=== PATIENT | female | born 1965 | race Caucasian/White ===

== ENCOUNTER 2020-12-07 08:59 | Inpatient (IN) ==
[2020-12-07] MEDS ORDERED: SODIUM CHLORIDE 0.9% 1,000 ML IV SCH (10:00)
[2020-12-07] MEDS ORDERED: ACETAMINOPHEN 325 MG TABLET PO PRN (10:00)
[2020-12-07] MEDS ORDERED: MAGNESIUM HYDROXIDE SUSP 30 ML UDCUP PO PRN (10:00)
[2020-12-07 11:57] LABS: Basophils # 0.1 10*3/uL (0.0-0.2); Basophils % 0.7 % (0.0-0.8); Eosinophils # 0.1 10*3/uL (0.0-0.87); Eosinophils % 0.5 % (0.00-10.9); Hematocrit 30.1 VOL% (35.7-47.0); Hemoglobin 8.9 GM/DL (12.0-16.0); Immature Granulocytes % 0.8 %; Lymphocytes # 2.4 10*3/uL (1.4-4.0); Lymphocytes % 20.2 % (21.3-54.2); Mean Corpuscular HGB Conc 29.6 GM/DL (32-36); Mean Corpuscular Volume 72.7 FL (87-102); Mean Platelet Volume 8.2 FL (9.6-12.0); Neutrophils % 70.8 % (38.7-73.9); Platelet Count 997 T/CUMM (130-400); Red Blood Count 4.14 MC/CUMM (3.8-5.5); Red Cell Distribution Width 20.1 % (9.3-17.3); White Blood Count 12.1 T/CUMM (4-12)
[2020-12-07 12:21] LABS: Albumin 3.1 G/DL (3.4-5.0); Bilirubin,Total 0.4 MG/DL (0.2-1.0); Calcium 9.2 MG/DL (8.5-10.1); Potassium 3.7 MMOL/L (3.5-5.1); Total Protein 6.2 G/DL (6.4-8.3)
[2020-12-07] MEDS: ONDANSETRON 4 MG/2 ML VIAL IV PRN ×2 (12:25→18:48)
[2020-12-07 14:44] LABS: Neutrophils,Peritoneal Fluid 91 %
[2020-12-07 14:47] LABS: RBC,Peritoneal Fluid < 1 T/CUMM
[2020-12-07] MEDS ORDERED: cefTRIAXone 1,000 MG VIAL IM SCH (15:30)
[2020-12-07] MEDS: metroNIDAZOLE INJ 500 MG in PREMIX 1 EACH IV SCH (16:16)
[2020-12-07] MEDS: cefTRIAXone 1,000 MG in SYRINGE 1 EACH IV SCH (16:16)
[2020-12-07] MEDS: SODIUM CHLOR 0.9% KCL 20 MEQ 20 MEQ/1,000 ML BAG IV SCH (18:07)
[2020-12-07] MEDS: DOCUSATE SODIUM 100 MG CAPSULE PO SCH (21:17)
[2020-12-07] MEDS: FERROUS SULFATE 325 MG TABLET PO SCH (21:17)
[2020-12-08] MEDS: metroNIDAZOLE INJ 500 MG in PREMIX 1 EACH IV SCH ×4 (00:59→23:29)
[2020-12-08] MEDS: SODIUM CHLOR 0.9% KCL 20 MEQ 20 MEQ/1,000 ML BAG IV SCH ×2 (04:27→15:29)
[2020-12-08 06:14] LABS: Basophils # 0.1 10*3/uL (0.0-0.2); Basophils % 0.8 % (0.0-0.8); Eosinophils # 0.1 10*3/uL (0.0-0.87); Eosinophils % 0.9 % (0.00-10.9); Hemoglobin 8.8 GM/DL (12.0-16.0); Immature Granulocytes % 0.5 %; Immature Granulocytes Absolute 0.06 #; Lymphocytes # 2.3 10*3/uL (1.4-4.0); Lymphocytes % 19.9 % (21.3-54.2); Mean Corpuscular HGB Conc 29.3 GM/DL (32-36); Mean Corpuscular Volume 73.5 FL (87-102); Mean Platelet Volume 8.5 FL (9.6-12.0); Monocytes % 9.7 % (1.7-12.7); Neutrophils % 68.2 % (38.7-73.9); Platelet Count 903 T/CUMM (130-400); Red Blood Count 4.08 MC/CUMM (3.8-5.5); Red Cell Distribution Width 20.4 % (9.3-17.3); White Blood Count 11.7 T/CUMM (4-12)
[2020-12-08 06:27] LABS: INR 1.1; PT Patient Result 11.6 SECS (9.8-11.9)
[2020-12-08 06:43] LABS: Albumin 2.7 G/DL (3.4-5.0); Bilirubin,Total 0.5 MG/DL (0.2-1.0); Calcium 8.4 MG/DL (8.5-10.1); Osmolality,Calculated 276.3 MOS/KG (273-304); Potassium 3.7 MMOL/L (3.5-5.1); Total Protein 5.5 G/DL (6.4-8.3)
[2020-12-08 06:46] LABS: VLDL CHOLESTEROL 36.4 MG/DL
[2020-12-08] MEDS: PANTOPRAZOLE 40 MG VIAL IV SCH (08:33)
[2020-12-08] MEDS: FERROUS SULFATE 325 MG TABLET PO SCH ×2 (08:34→20:39)
[2020-12-08] MEDS: DOCUSATE SODIUM 100 MG CAPSULE PO SCH ×2 (08:34→20:40)
[2020-12-08] MEDS: ONDANSETRON 4 MG/2 ML VIAL IV PRN ×2 (12:06→20:39)
[2020-12-08] MEDS: cefTRIAXone 1,000 MG in SYRINGE 1 EACH IV SCH (15:30)
[2020-12-09] MEDS: MORPHINE 4 MG/1 ML VIAL IV PRN ×2 (01:41→23:00)
[2020-12-09] MEDS: SODIUM CHLOR 0.9% KCL 20 MEQ 20 MEQ/1,000 ML BAG IV SCH (01:55)
[2020-12-09] MEDS: PROMETHAZINE 25 MG/1 ML VIAL IM PRN ×2 (05:57→15:20)
[2020-12-09 06:40] LABS: Calcium 8.6 MG/DL (8.5-10.1); Osmolality,Calculated 267.8 MOS/KG (273-304); Potassium 4.7 MMOL/L (3.5-5.1)
[2020-12-09 07:58] LABS: Basophils # 0.1 10*3/uL (0.0-0.2); Basophils % 0.5 % (0.0-0.8); Eosinophils # 0.2 10*3/uL (0.0-0.87); Eosinophils % 1.3 % (0.00-10.9); Hematocrit 30.2 VOL% (35.7-47.0); Hemoglobin 8.5 GM/DL (12.0-16.0); Immature Granulocytes % 0.8 %; Immature Granulocytes Absolute 0.09 #; Lymphocytes # 2.7 10*3/uL (1.4-4.0); Lymphocytes % 23.5 % (21.3-54.2); Mean Corpuscular HGB Conc 28.1 GM/DL (32-36); Mean Corpuscular Volume 75.9 FL (87-102); Mean Platelet Volume 8.2 FL (9.6-12.0); Neutrophils % 63.9 % (38.7-73.9); Platelet Count 837 T/CUMM (130-400); Red Blood Count 3.98 MC/CUMM (3.8-5.5); Red Cell Distribution Width 20.5 % (9.3-17.3); White Blood Count 11.4 T/CUMM (4-12)
[2020-12-09] MEDS: DOCUSATE SODIUM 100 MG CAPSULE PO SCH ×2 (08:01→21:55)
[2020-12-09] MEDS: PANTOPRAZOLE 40 MG VIAL IV SCH (08:01)
[2020-12-09] MEDS: metroNIDAZOLE INJ 500 MG in PREMIX 1 EACH IV SCH ×2 (08:01→15:28)
[2020-12-09] MEDS: FERROUS SULFATE 325 MG TABLET PO SCH ×2 (08:01→21:55)
[2020-12-09 08:07] LABS: Acanthocytes Few; Burr Cells Few; Hypochromasia Slight; Polychromasia Slight
[2020-12-09 08:08] LABS: Platelet Estimate Increased
[2020-12-09] MEDS: ONDANSETRON 4 MG/2 ML VIAL IV PRN (11:28)
[2020-12-09] MEDS: POTASSIUM CHLORIDE INJ 10 MEQ in DEXTROSE 5% NACL 0.45% 1,000 ML IV SCH (12:51)
[2020-12-09] MEDS: cefTRIAXone 1,000 MG in SYRINGE 1 EACH IV SCH (15:23)
[2020-12-09] MEDS ORDERED: FAMOTIDINE 20 MG TABLET PO SCH (21:00)
[2020-12-09] MEDS: SPIRONOLACTONE 25 MG TABLET PO SCH (21:55)
[2020-12-10] MEDS: metroNIDAZOLE INJ 500 MG in PREMIX 1 EACH IV SCH ×3 (00:20→17:01)
[2020-12-10] MEDS: POTASSIUM CHLORIDE INJ 10 MEQ in DEXTROSE 5% NACL 0.45% 1,000 ML IV SCH (02:18)
[2020-12-10] MEDS: PROMETHAZINE 25 MG/1 ML VIAL IM PRN ×2 (04:56→17:39)
[2020-12-10 06:37] LABS: Albumin 2.4 G/DL (3.4-5.0); Bilirubin,Total 0.5 MG/DL (0.2-1.0); Calcium 8.3 MG/DL (8.5-10.1); Osmolality,Calculated 269.7 MOS/KG (273-304); Total Protein 5.2 G/DL (6.4-8.3)
[2020-12-10 06:56] LABS: Basophils # 0.1 10*3/uL (0.0-0.2); Basophils % 0.8 % (0.0-0.8); Eosinophils # 0.2 10*3/uL (0.0-0.87); Hematocrit 31.8 VOL% (35.7-47.0); Hemoglobin 8.7 GM/DL (12.0-16.0); Immature Granulocytes % 0.7 %; Immature Granulocytes Absolute 0.11 #; Lymphocytes # 2.6 10*3/uL (1.4-4.0); Lymphocytes % 17.2 % (21.3-54.2); Mean Corpuscular HGB Conc 27.4 GM/DL (32-36); Mean Corpuscular Volume 77.8 FL (87-102); Mean Platelet Volume 8.8 FL (9.6-12.0); Monocytes % 8.5 % (1.7-12.7); Neutrophils % 71.8 % (38.7-73.9); Platelet Count 779 T/CUMM (130-400); Red Blood Count 4.09 MC/CUMM (3.8-5.5); Red Cell Distribution Width 21.2 % (9.3-17.3); White Blood Count 14.9 T/CUMM (4-12)
[2020-12-10 07:38] LABS: Platelet Estimate Increased
[2020-12-10 07:39] LABS: Anisocytosis 2+; Burr Cells Few; Ovalocytes Few; Poikilocytosis 1+
[2020-12-10] MEDS ORDERED: MAGNESIUM SULF RIDER 4 GM in PREMIX 1 EACH IV PRN (09:50)
[2020-12-10] MEDS ORDERED: MAGNESIUM SULF RIDER 2 GM in PREMIX 1 EACH IV PRN (09:50)
[2020-12-10] MEDS: FERROUS SULFATE 325 MG TABLET PO SCH (10:33)
[2020-12-10] MEDS: PANTOPRAZOLE 40 MG VIAL IV SCH ×2 (10:33→21:42)
[2020-12-10] MEDS: SPIRONOLACTONE 25 MG TABLET PO SCH (10:33)
[2020-12-10] MEDS: DOCUSATE SODIUM 100 MG CAPSULE PO SCH (10:34)
[2020-12-10] MEDS: MAGNESIUM SULF IV SCH (12:48)
[2020-12-10] MEDS: [UNRECOGNIZED DRUG - OTHER] IV SCH (12:48)
[2020-12-10] MEDS: POTASSIUM CHLORIDE IV SCH (12:48)
[2020-12-10] MEDS: cefTRIAXone 1,000 MG in SYRINGE 1 EACH IV SCH (17:01)
[2020-12-10] MEDS: MORPHINE 4 MG/1 ML VIAL IV PRN (21:49)
[2020-12-11] MEDS: DOCUSATE SODIUM 100 MG CAPSULE PO SCH ×3 (00:40→20:14)
[2020-12-11] MEDS: SPIRONOLACTONE 25 MG TABLET PO SCH ×3 (00:40→20:09)
[2020-12-11] MEDS: FERROUS SULFATE 325 MG TABLET PO SCH ×3 (00:41→20:14)
[2020-12-11] MEDS: metroNIDAZOLE INJ 500 MG in PREMIX 1 EACH IV SCH ×4 (01:01→23:55)
[2020-12-11] MEDS: MAGNESIUM SULF IV SCH ×5 (01:02→18:41)
[2020-12-11] MEDS: [UNRECOGNIZED DRUG - OTHER] IV SCH ×5 (01:02→18:41)
[2020-12-11] MEDS: POTASSIUM CHLORIDE IV SCH ×5 (01:02→18:41)
[2020-12-11] MEDS: ALPRAZolam 0.5 MG TABLET PO PRN (01:05)
[2020-12-11 05:55] LABS: Albumin 2.3 G/DL (3.4-5.0); Bilirubin,Total 0.9 MG/DL (0.2-1.0); Calcium 8.4 MG/DL (8.5-10.1); Osmolality,Calculated 267.8 MOS/KG (273-304); Potassium 4.2 MMOL/L (3.5-5.1); Total Protein 5.1 G/DL (6.4-8.3)
[2020-12-11 06:01] LABS: Basophils # 0.1 10*3/uL (0.0-0.2); Basophils % 0.7 % (0.0-0.8); Eosinophils # 0.1 10*3/uL (0.0-0.87); Eosinophils % 0.7 % (0.00-10.9); Hematocrit 31.9 VOL% (35.7-47.0); Immature Granulocytes % 0.9 %; Immature Granulocytes Absolute 0.13 #; Lymphocytes # 2.7 10*3/uL (1.4-4.0); Lymphocytes % 19.1 % (21.3-54.2); Mean Corpuscular HGB Conc 28.2 GM/DL (32-36); Mean Corpuscular Volume 74.9 FL (87-102); Mean Platelet Volume 8.2 FL (9.6-12.0); Neutrophils % 69.6 % (38.7-73.9); Platelet Count 779 T/CUMM (130-400); Red Blood Count 4.26 MC/CUMM (3.8-5.5); Red Cell Distribution Width 21.7 % (9.3-17.3); White Blood Count 13.9 T/CUMM (4-12)
[2020-12-11 06:16] LABS: Platelet Estimate Increased
[2020-12-11 06:17] LABS: Anisocytosis 2+; Macrocytosis 1+; Ovalocytes Few; Poikilocytosis 1+; Tear Drop Cells Few
[2020-12-11] MEDS: ONDANSETRON 4 MG/2 ML VIAL IV PRN (08:43)
[2020-12-11] MEDS: PANTOPRAZOLE 40 MG VIAL IV SCH ×2 (08:45→20:12)
[2020-12-11] MEDS: PROMETHAZINE 25 MG/1 ML VIAL IM PRN ×2 (09:39→15:58)
[2020-12-11] MEDS: MORPHINE 4 MG/1 ML VIAL IV PRN ×2 (11:21→20:10)
[2020-12-11] MEDS: cefTRIAXone 1,000 MG in SYRINGE 1 EACH IV SCH (15:55)
[2020-12-12] MEDS: ONDANSETRON 4 MG/2 ML VIAL IV PRN (02:35)
[2020-12-12] MEDS: MAGNESIUM SULF IV SCH ×2 (05:10→17:21)
[2020-12-12] MEDS: POTASSIUM CHLORIDE IV SCH ×2 (05:10→17:21)
[2020-12-12] MEDS: [UNRECOGNIZED DRUG - OTHER] IV SCH ×2 (05:10→17:21)
[2020-12-12 05:38] LABS: Basophils # 0.1 10*3/uL (0.0-0.2); Basophils % 0.6 % (0.0-0.8); Eosinophils # 0.1 10*3/uL (0.0-0.87); Eosinophils % 0.9 % (0.00-10.9); Hematocrit 30.6 VOL% (35.7-47.0); Hemoglobin 8.9 GM/DL (12.0-16.0); Immature Granulocytes % 0.8 %; Immature Granulocytes Absolute 0.11 #; Lymphocytes # 2.2 10*3/uL (1.4-4.0); Lymphocytes % 16.1 % (21.3-54.2); Mean Corpuscular HGB Conc 29.1 GM/DL (32-36); Mean Corpuscular Volume 75.6 FL (87-102); Mean Platelet Volume 8.5 FL (9.6-12.0); Monocytes % 9.5 % (1.7-12.7); Neutrophils % 72.1 % (38.7-73.9); Platelet Count 722 T/CUMM (130-400); Red Blood Count 4.05 MC/CUMM (3.8-5.5); Red Cell Distribution Width 22.4 % (9.3-17.3); White Blood Count 13.9 T/CUMM (4-12)
[2020-12-12 05:50] LABS: Calcium 8.2 MG/DL (8.5-10.1); Osmolality,Calculated 268.8 MOS/KG (273-304); Potassium 4.3 MMOL/L (3.5-5.1)
[2020-12-12 06:07] LABS: Hypochromasia 1+; Microcytosis 1+; Platelet Estimate Increased
[2020-12-12] MEDS: SPIRONOLACTONE 25 MG TABLET PO SCH ×2 (09:16→20:55)
[2020-12-12] MEDS: DOCUSATE SODIUM 100 MG CAPSULE PO SCH (09:16)
[2020-12-12] MEDS: PROMETHAZINE 25 MG/1 ML VIAL IM PRN ×2 (09:17→19:24)
[2020-12-12] MEDS: PANTOPRAZOLE 40 MG VIAL IV SCH ×2 (09:17→20:56)
[2020-12-12] MEDS: metroNIDAZOLE INJ 500 MG in PREMIX 1 EACH IV SCH ×2 (09:17→17:17)
[2020-12-12] MEDS: cefTRIAXone 1,000 MG in SYRINGE 1 EACH IV SCH (09:34)
[2020-12-12] MEDS: FERROUS SULFATE 325 MG TABLET PO SCH (09:46)
[2020-12-12] MEDS: MORPHINE 4 MG/1 ML VIAL IV PRN ×2 (12:29→21:21)
[2020-12-12 16:00] LABS: RBC,Peritoneal Fluid 38585 T/CUMM
[2020-12-13] MEDS: metroNIDAZOLE INJ 500 MG in PREMIX 1 EACH IV SCH ×3 (01:15→17:48)
[2020-12-13] MEDS: [UNRECOGNIZED DRUG - OTHER] IV SCH ×3 (04:27→20:40)
[2020-12-13] MEDS: MAGNESIUM SULF IV SCH ×3 (04:27→20:40)
[2020-12-13] MEDS: POTASSIUM CHLORIDE IV SCH ×3 (04:27→20:40)
[2020-12-13] MEDS: PROMETHAZINE 25 MG/1 ML VIAL IM PRN (05:11)
[2020-12-13 06:08] LABS: Calcium 8.5 MG/DL (8.5-10.1); Osmolality,Calculated 268.8 MOS/KG (273-304); Potassium 4.5 MMOL/L (3.5-5.1)
[2020-12-13 06:11] LABS: Basophils # 0.1 10*3/uL (0.0-0.2); Basophils % 0.4 % (0.0-0.8); Eosinophils # 0.2 10*3/uL (0.0-0.87); Hematocrit 31.3 VOL% (35.7-47.0); Hemoglobin 8.7 GM/DL (12.0-16.0); Immature Granulocytes % 0.9 %; Immature Granulocytes Absolute 0.14 #; Lymphocytes # 1.9 10*3/uL (1.4-4.0); Lymphocytes % 12.5 % (21.3-54.2); Mean Corpuscular HGB Conc 27.8 GM/DL (32-36); Mean Corpuscular Volume 76.5 FL (87-102); Mean Platelet Volume 8.3 FL (9.6-12.0); Monocytes % 9.7 % (1.7-12.7); Neutrophils % 75.5 % (38.7-73.9); Platelet Count 691 T/CUMM (130-400); Red Blood Count 4.09 MC/CUMM (3.8-5.5); Red Cell Distribution Width 23.3 % (9.3-17.3); White Blood Count 14.9 T/CUMM (4-12)
[2020-12-13 06:41] LABS: Anisocytosis 2+; Ovalocytes Few; Platelet Estimate Increased; Poikilocytosis 1+; Target Cells Few
[2020-12-13 06:42] LABS: Burr Cells Few
[2020-12-13 08:48] LABS: Neutrophils,Peritoneal Fluid 97 %
[2020-12-13] MEDS: SPIRONOLACTONE 25 MG TABLET PO SCH ×2 (09:25→20:39)
[2020-12-13] MEDS: MORPHINE 4 MG/1 ML VIAL IV PRN ×2 (10:03→17:49)
[2020-12-13] MEDS: PANTOPRAZOLE 40 MG TABLET PO SCH ×2 (10:04→20:39)
[2020-12-13] MEDS: cefTRIAXone 1,000 MG in SYRINGE 1 EACH IV SCH (10:28)
[2020-12-13 16:29] LABS: INR 1.2; Partial Thromboplastin Time 28.9 SECS (23.9-33.8)
[2020-12-13] MEDS: ALPRAZolam 0.5 MG TABLET PO PRN (20:39)
[2020-12-14] MEDS: POTASSIUM CHLORIDE IV SCH ×4 (00:58→22:37)
[2020-12-14] MEDS: MAGNESIUM SULF IV SCH ×4 (00:58→22:37)
[2020-12-14] MEDS: [UNRECOGNIZED DRUG - OTHER] IV SCH ×4 (00:58→22:37)
[2020-12-14] MEDS: metroNIDAZOLE INJ 500 MG in PREMIX 1 EACH IV SCH ×3 (00:59→16:47)
[2020-12-14 06:53] LABS: Basophils # 0.1 10*3/uL (0.0-0.2); Basophils % 0.5 % (0.0-0.8); Eosinophils # 0.3 10*3/uL (0.0-0.87); Eosinophils % 1.8 % (0.00-10.9); Hematocrit 31.6 VOL% (35.7-47.0); Hemoglobin 9.1 GM/DL (12.0-16.0); Immature Granulocytes % 0.9 %; Immature Granulocytes Absolute 0.13 #; Lymphocytes % 13.5 % (21.3-54.2); Mean Corpuscular HGB Conc 28.8 GM/DL (32-36); Mean Corpuscular Volume 75.8 FL (87-102); Mean Platelet Volume 8.3 FL (9.6-12.0); Monocytes % 10.5 % (1.7-12.7); Neutrophils % 72.8 % (38.7-73.9); Platelet Count 691 T/CUMM (130-400); Red Blood Count 4.17 MC/CUMM (3.8-5.5); Red Cell Distribution Width 23.7 % (9.3-17.3); White Blood Count 14.7 T/CUMM (4-12)
[2020-12-14 06:56] LABS: Anisocytosis 3+; Burr Cells 1+; Platelet Estimate Increased; Poikilocytosis 1+; Target Cells Few
[2020-12-14 06:57] LABS: Polychromasia Slight
[2020-12-14 07:09] LABS: Albumin 2.2 G/DL (3.4-5.0); Calcium 9.2 MG/DL (8.5-10.1); Potassium 4.4 MMOL/L (3.5-5.1)
[2020-12-14] MEDS ORDERED: ONDANSETRON 4 MG/2 ML VIAL ONE (08:07)
[2020-12-14] MEDS ORDERED: LIDOCAINE 2% 5 ML VIAL ONE (08:07)
[2020-12-14] MEDS ORDERED: propofoL 200 MG/20 ML VIAL IV ONE (08:07)
[2020-12-14] MEDS ORDERED: fentaNYL 100 MCG/2 ML VIAL ONE ×2 (08:08→10:53)
[2020-12-14] MEDS ORDERED: MIDAZOLAM 2 MG/2 ML VIAL ONE (08:08)
[2020-12-14] MEDS ORDERED: SUCCINYLCHOLINE 200 MG/10 ML VIAL ONE (08:13)
[2020-12-14] MEDS ORDERED: LIDOCAINE 1%/EPI INJ 20 ML VIAL ONE (08:16)
[2020-12-14] MEDS ORDERED: BUPIVACAINE MPF 0.25% 30 ML VIAL ONE (08:16)
[2020-12-14] MEDS ORDERED: TISSUE ADHESIVE 1 EACH APPLICATOR TOP ONE (08:16)
[2020-12-14] MEDS ORDERED: SEVOFLURANE 1 UNIT/15 MINUTE INH ONE (09:56)
[2020-12-14] MEDS ORDERED: LABETALOL 20 MG/4 ML SYRINGE IV ONE (11:07)
[2020-12-14] MEDS ORDERED: PHENYLEPHRINE 1 MG/10 ML SYRINGE IV ONE (11:13)
[2020-12-14] MEDS ORDERED: NEOSTIGMINE 10 MG/10 ML VIAL ONE (11:37)
[2020-12-14] MEDS ORDERED: GLYCOPYRROLATE 0.4 MG/2 ML VIAL ONE (11:37)
[2020-12-14] MEDS ORDERED: HYDROmorphone 2 MG/1 ML VIAL ONE (12:00)
[2020-12-14] MEDS ORDERED: ONDANSETRON 4 MG/2 ML VIAL IV PRN (12:01)
[2020-12-14] MEDS: cefTRIAXone 1,000 MG in SYRINGE 1 EACH IV SCH (12:01)
[2020-12-14] MEDS: HYDROmorphone 2 MG/1 ML VIAL IV PRN ×4 (12:03→12:20)
[2020-12-14] MEDS ORDERED: MEPERIDINE 25 MG/1 ML VIAL ONE (12:30)
[2020-12-14] MEDS ORDERED: MEPERIDINE 25 MG/1 ML VIAL IV ONE (12:35)
[2020-12-14] MEDS: SPIRONOLACTONE 25 MG TABLET PO SCH ×2 (14:14→20:04)
[2020-12-14] MEDS: PANTOPRAZOLE 40 MG TABLET PO SCH ×2 (14:14→20:04)
[2020-12-14] MEDS: PROMETHAZINE 25 MG/1 ML VIAL IM PRN (16:57)
[2020-12-14] MEDS: ALPRAZolam 0.5 MG TABLET PO PRN (20:04)
[2020-12-14] MEDS: MORPHINE 4 MG/1 ML VIAL IV PRN (22:35)
[2020-12-15 00:47] LABS: Calcium 8.6 MG/DL (8.5-10.1); Osmolality,Calculated 269.2 MOS/KG (273-304); Potassium 5.3 MMOL/L (3.5-5.1)
[2020-12-15] MEDS: metroNIDAZOLE INJ 500 MG in PREMIX 1 EACH IV SCH ×3 (01:15→16:14)
[2020-12-15] MEDS: MORPHINE 4 MG/1 ML VIAL IV PRN ×4 (03:59→19:58)
[2020-12-15] MEDS: [UNRECOGNIZED DRUG - OTHER] IV SCH (04:00)
[2020-12-15] MEDS: MAGNESIUM SULF IV SCH (04:00)
[2020-12-15] MEDS: POTASSIUM CHLORIDE IV SCH (04:00)
[2020-12-15 06:51] LABS: Basophils # 0.1 10*3/uL (0.0-0.2); Basophils % 0.4 % (0.0-0.8); Eosinophils # 0.1 10*3/uL (0.0-0.87); Eosinophils % 0.3 % (0.00-10.9); Hematocrit 32.6 VOL% (35.7-47.0); Hemoglobin 9.7 GM/DL (12.0-16.0); Immature Granulocytes % 0.7 %; Immature Granulocytes Absolute 0.12 #; Lymphocytes # 2.1 10*3/uL (1.4-4.0); Mean Corpuscular HGB Conc 29.8 GM/DL (32-36); Mean Corpuscular Volume 73.8 FL (87-102); Mean Platelet Volume 8.5 FL (9.6-12.0); Monocytes % 11.4 % (1.7-12.7); NRBC # 0.03 10*3/uL; Neutrophils % 74.2 % (38.7-73.9); Platelet Count 752 T/CUMM (130-400); Red Blood Count 4.42 MC/CUMM (3.8-5.5); Red Cell Distribution Width 23.7 % (9.3-17.3); White Blood Count 16.4 T/CUMM (4-12)
[2020-12-15 07:16] LABS: Hypochromasia 1+; Microcytosis 1+; Platelet Estimate Increased
[2020-12-15] MEDS ORDERED: LACTATED RINGERS 1,000 ML IV SCH (08:00)
[2020-12-15] MEDS: cefTRIAXone 1,000 MG in SYRINGE 1 EACH IV SCH (09:27)
[2020-12-15] MEDS: PANTOPRAZOLE 40 MG TABLET PO SCH ×2 (09:31→20:03)
[2020-12-15] MEDS: SPIRONOLACTONE 25 MG TABLET PO SCH ×2 (09:31→20:02)
[2020-12-15] MEDS ORDERED: LIDOCAINE 2% 5 ML VIAL ONE (09:51)
[2020-12-15] MEDS ORDERED: propofoL 200 MG/20 ML VIAL IV ONE (09:51)
[2020-12-15] MEDS: SODIUM CHLORIDE 0.9% 1,000 ML IV SCH (10:10)
[2020-12-15] MEDS: PROMETHAZINE 25 MG/1 ML VIAL IM PRN (12:53)
[2020-12-15] MEDS: DEXTROSE 5% NACL 0.45% 1,000 ML IV SCH ×2 (16:55→17:34)
[2020-12-15] MEDS: ONDANSETRON 4 MG/2 ML VIAL IV PRN (20:02)
[2020-12-15] MEDS: ALPRAZolam 0.5 MG TABLET PO PRN (21:37)
[2020-12-16] MEDS: metroNIDAZOLE INJ 500 MG in PREMIX 1 EACH IV SCH ×3 (01:25→18:00)
[2020-12-16] MEDS: MORPHINE 4 MG/1 ML VIAL IV PRN ×5 (03:21→21:15)
[2020-12-16] MEDS: DEXTROSE 5% NACL 0.45% 1,000 ML IV SCH ×2 (05:45→23:40)
[2020-12-16 06:28] LABS: Calcium 9.1 MG/DL (8.5-10.1); Potassium 4.7 MMOL/L (3.5-5.1)
[2020-12-16 06:42] LABS: Basophils # 0.1 10*3/uL (0.0-0.2); Basophils % 0.5 % (0.0-0.8); Eosinophils # 0.2 10*3/uL (0.0-0.87); Eosinophils % 1.5 % (0.00-10.9); Hematocrit 31.7 VOL% (35.7-47.0); Immature Granulocytes % 0.8 %; Lymphocytes # 1.8 10*3/uL (1.4-4.0); Lymphocytes % 13.8 % (21.3-54.2); Mean Corpuscular Volume 76.9 FL (87-102); Mean Platelet Volume 8.6 FL (9.6-12.0); Monocytes % 11.7 % (1.7-12.7); NRBC # 0.02 10*3/uL; Neutrophils % 71.7 % (38.7-73.9); Platelet Count 645 T/CUMM (130-400); Red Blood Count 4.12 MC/CUMM (3.8-5.5); Red Cell Distribution Width 24.6 % (9.3-17.3); White Blood Count 13.1 T/CUMM (4-12)
[2020-12-16 06:43] LABS: Hemoglobin 9.2 GM/DL (12.0-16.0)
[2020-12-16] MEDS: ONDANSETRON 4 MG/2 ML VIAL IV PRN ×2 (09:25→21:15)
[2020-12-16] MEDS: SPIRONOLACTONE 25 MG TABLET PO SCH ×2 (10:30→21:13)
[2020-12-16] MEDS: cefTRIAXone 1,000 MG in SYRINGE 1 EACH IV SCH (10:30)
[2020-12-16] MEDS: PANTOPRAZOLE 40 MG TABLET PO SCH ×2 (10:30→21:14)
[2020-12-16] MEDS: SODIUM CHLORIDE 0.9% 1,000 ML IV SCH (10:31)
[2020-12-16] MEDS: PROMETHAZINE 25 MG/1 ML VIAL IM PRN ×2 (13:01→22:24)
[2020-12-16] MEDS: ALPRAZolam 0.5 MG TABLET PO PRN (21:16)
[2020-12-17] MEDS: MORPHINE 4 MG/1 ML VIAL IV PRN ×5 (00:02→18:12)
[2020-12-17] MEDS: metroNIDAZOLE INJ 500 MG in PREMIX 1 EACH IV SCH ×3 (01:09→16:33)
[2020-12-17 08:06] LABS: Calcium 9.3 MG/DL (8.5-10.1); Osmolality,Calculated 275.5 MOS/KG (273-304); Potassium 4.1 MMOL/L (3.5-5.1)
[2020-12-17 08:19] LABS: Basophils # 0.1 10*3/uL (0.0-0.2); Basophils % 0.4 % (0.0-0.8); Eosinophils # 0.2 10*3/uL (0.0-0.87); Eosinophils % 1.7 % (0.00-10.9); Hematocrit 32.2 VOL% (35.7-47.0); Immature Granulocytes % 0.7 %; Lymphocytes # 1.8 10*3/uL (1.4-4.0); Lymphocytes % 13.2 % (21.3-54.2); Mean Platelet Volume 8.5 FL (9.6-12.0); Monocytes % 10.9 % (1.7-12.7); NRBC # 0.02 10*3/uL; Neutrophils % 73.1 % (38.7-73.9); Platelet Count 667 T/CUMM (130-400); Red Blood Count 4.13 MC/CUMM (3.8-5.5); Red Cell Distribution Width 24.8 % (9.3-17.3); White Blood Count 13.4 T/CUMM (4-12)
[2020-12-17] MEDS: PANTOPRAZOLE 40 MG TABLET PO SCH ×2 (09:37→20:59)
[2020-12-17] MEDS: cefTRIAXone 1,000 MG in SYRINGE 1 EACH IV SCH (09:37)
[2020-12-17] MEDS: SPIRONOLACTONE 25 MG TABLET PO SCH ×2 (09:37→20:59)
[2020-12-17] MEDS: DEXTROSE 5% NACL 0.45% 1,000 ML IV SCH ×3 (10:31→15:10)
[2020-12-17] MEDS: SODIUM CHLORIDE 0.9% 1,000 ML IV SCH (10:31)
[2020-12-17] MEDS: PROMETHAZINE 25 MG/1 ML VIAL IM PRN (13:09)
[2020-12-17] MEDS: ALPRAZolam 0.5 MG TABLET PO PRN (20:59)
[2020-12-18] MEDS: DEXTROSE 5% NACL 0.45% 1,000 ML IV SCH ×3 (00:14→18:46)
[2020-12-18] MEDS: metroNIDAZOLE INJ 500 MG in PREMIX 1 EACH IV SCH ×3 (00:15→17:06)
[2020-12-18] MEDS: MORPHINE 4 MG/1 ML VIAL IV PRN ×4 (00:19→17:06)
[2020-12-18] MEDS: PANTOPRAZOLE 40 MG TABLET PO SCH ×2 (08:53→21:08)
[2020-12-18] MEDS: cefTRIAXone 1,000 MG in SYRINGE 1 EACH IV SCH (08:53)
[2020-12-18] MEDS: SPIRONOLACTONE 25 MG TABLET PO SCH ×2 (08:53→21:08)
[2020-12-18] MEDS: PROMETHAZINE 25 MG/1 ML VIAL IM PRN ×2 (09:09→17:05)
[2020-12-18] MEDS: SODIUM CHLORIDE 0.9% 1,000 ML IV SCH (11:22)
[2020-12-18] MEDS: FLUCONAZOLE 150 MG TABLET PO SCH (18:42)
[2020-12-19] MEDS: metroNIDAZOLE INJ 500 MG in PREMIX 1 EACH IV SCH ×3 (00:34→17:57)
[2020-12-19] MEDS: DEXTROSE 5% NACL 0.45% 1,000 ML IV SCH ×3 (03:15→23:37)
[2020-12-19] MEDS: MORPHINE 4 MG/1 ML VIAL IV PRN ×2 (03:37→20:54)
[2020-12-19] MEDS: ONDANSETRON 4 MG/2 ML VIAL IV PRN ×2 (03:48→15:59)
[2020-12-19 07:20] LABS: Basophils # 0.1 10*3/uL (0.0-0.2); Basophils % 0.8 % (0.0-0.8); Eosinophils # 0.1 10*3/uL (0.0-0.87); Hematocrit 33.6 VOL% (35.7-47.0); Hemoglobin 8.9 GM/DL (12.0-16.0); Immature Granulocytes Absolute 0.12 #; Lymphocytes # 1.7 10*3/uL (1.4-4.0); Mean Corpuscular HGB Conc 26.5 GM/DL (32-36); Mean Corpuscular Volume 83.2 FL (87-102); Mean Platelet Volume 8.5 FL (9.6-12.0); Monocytes % 11.6 % (1.7-12.7); NRBC # 0.02 10*3/uL; Neutrophils % 71.6 % (38.7-73.9); Platelet Count 649 T/CUMM (130-400); Red Blood Count 4.04 MC/CUMM (3.8-5.5); Red Cell Distribution Width 25.2 % (9.3-17.3); White Blood Count 12.3 T/CUMM (4-12)
[2020-12-19 07:28] LABS: Albumin 1.7 G/DL (3.4-5.0); Bilirubin,Total 0.8 MG/DL (0.2-1.0); Osmolality,Calculated 268.8 MOS/KG (273-304); Total Protein 4.3 G/DL (6.4-8.3)
[2020-12-19 08:29] LABS: Hypochromasia 1+; Microcytosis 1+
[2020-12-19 08:30] LABS: Anisocytosis 1+; Platelet Estimate Increased
[2020-12-19] MEDS ORDERED: diphenhydrAMINE 50 MG/1 ML VIAL IV ONE (09:00)
[2020-12-19] MEDS ORDERED: DEXAMETHASONE INJ 10 MG in SODIUM CHLORIDE 0.9% 50 ML IV ONE ×2 (09:00)
[2020-12-19] MEDS: FLUCONAZOLE 150 MG TABLET PO SCH (09:48)
[2020-12-19] MEDS: allopurinoL 100 MG TABLET PO SCH (09:50)
[2020-12-19] MEDS: PANTOPRAZOLE 40 MG TABLET PO SCH ×2 (09:51→20:54)
[2020-12-19] MEDS: METOPROLOL SUCCINATE XL 25 MG TABLET PO SCH (09:51)
[2020-12-19] MEDS: SPIRONOLACTONE 25 MG TABLET PO SCH ×2 (09:51→20:54)
[2020-12-19] MEDS: PROMETHAZINE 25 MG/1 ML VIAL IM PRN ×2 (09:56→20:52)
[2020-12-19] MEDS: SODIUM CHLORIDE 0.9% 1,000 ML IV SCH (09:58)
[2020-12-19] MEDS: cefTRIAXone 1,000 MG in SYRINGE 1 EACH IV SCH (09:58)
[2020-12-19] MEDS ORDERED: IRON SUCROSE 300 MG in SODIUM CHLORIDE 0.9% 100 ML IV ONE (11:00)
[2020-12-20] MEDS: MORPHINE 4 MG/1 ML VIAL IV PRN ×3 (01:52→21:12)
[2020-12-20] MEDS: ONDANSETRON 4 MG/2 ML VIAL IV PRN ×3 (01:56→14:15)
[2020-12-20] MEDS: metroNIDAZOLE INJ 500 MG in PREMIX 1 EACH IV SCH ×3 (01:58→17:21)
[2020-12-20 07:21] LABS: Basophils % 0.2 % (0.0-0.8); Hematocrit 29.6 VOL% (35.7-47.0); Immature Granulocytes % 1.6 %; Lymphocytes # 2.8 10*3/uL (1.4-4.0); Lymphocytes % 21.9 % (21.3-54.2); Mean Corpuscular HGB Conc 28.7 GM/DL (32-36); Mean Corpuscular Volume 77.1 FL (87-102); Mean Platelet Volume 8.9 FL (9.6-12.0); Monocytes % 9.6 % (1.7-12.7); NRBC # 0.04 10*3/uL; Neutrophils % 66.7 % (38.7-73.9); Platelet Count 723 T/CUMM (130-400); Red Blood Count 3.84 MC/CUMM (3.8-5.5); Red Cell Distribution Width 25.5 % (9.3-17.3); White Blood Count 12.8 T/CUMM (4-12)
[2020-12-20 07:26] LABS: Hemoglobin 8.5 GM/DL (12.0-16.0)
[2020-12-20 07:31] LABS: Hypochromasia 1+; Microcytosis 1+; Platelet Estimate Increased
[2020-12-20] MEDS: METOPROLOL SUCCINATE XL 25 MG TABLET PO SCH (08:51)
[2020-12-20] MEDS: PANTOPRAZOLE 40 MG TABLET PO SCH ×2 (08:51→21:12)
[2020-12-20] MEDS: cefTRIAXone 1,000 MG in SYRINGE 1 EACH IV SCH (08:51)
[2020-12-20] MEDS: FLUCONAZOLE 150 MG TABLET PO SCH (08:52)
[2020-12-20] MEDS: allopurinoL 100 MG TABLET PO SCH (08:52)
[2020-12-20] MEDS: SPIRONOLACTONE 25 MG TABLET PO SCH ×2 (08:52→21:12)
[2020-12-20] MEDS: DEXTROSE 5% NACL 0.45% 1,000 ML IV SCH ×2 (08:58→17:10)
[2020-12-20] MEDS ORDERED: FAMOTIDINE 20 MG TABLET PO ONE (10:10)
[2020-12-20] MEDS ORDERED: diphenhydrAMINE 50 MG/1 ML VIAL IV ONE (10:10)
[2020-12-20] MEDS ORDERED: PALONOSETRON 0.25 MG/5 ML VIAL IV ONE (10:10)
[2020-12-20] MEDS ORDERED: DEXAMETHASONE INJ 20 MG in SODIUM CHLORIDE 0.9% 50 ML IV ONE (10:10)
[2020-12-20] MEDS ORDERED: CYCLOPHOSPHAMIDE INJ 1,000 MG in SODIUM CHLORIDE 0.9% 250 ML IV ONE (10:40)
[2020-12-20] MEDS ORDERED: DOXORUBICIN IV ONE (10:40)
[2020-12-20] MEDS ORDERED: SODIUM CHLORIDE 0.9% IV ONE ×2 (10:40→12:00)
[2020-12-20] MEDS ORDERED: RITUXIMAB ABBS IV ONE ×2 (10:40→12:00)
[2020-12-20] MEDS ORDERED: vinCRIStine 2 MG in SYRINGE 1 EACH IV ONE (10:40)
[2020-12-20] MEDS: SODIUM CHLORIDE 0.9% 1,000 ML IV SCH (12:46)
[2020-12-20] MEDS ORDERED: traMADol 50 MG TABLET PO PRN (16:03)
[2020-12-20] MEDS ORDERED: LOPERAMIDE 2 MG CAPSULE PO PRN ×2 (16:03)
[2020-12-20] MEDS ORDERED: chlorproMAZINE INJ 25 MG in SODIUM CHLORIDE 0.9% 100 ML IV PRN (16:03)
[2020-12-20] MEDS ORDERED: MYLANTA/LIDO VISC 2:1 300 ML BOTTLE SWISH/SPIT PRN (16:03)
[2020-12-20] MEDS ORDERED: MYLANTA/LIDO VISC 2:1 300 ML BOTTLE SWISH/SWAL PRN (16:03)
[2020-12-20] MEDS ORDERED: ALPRAZolam 0.25 MG TABLET PO PRN (16:03)
[2020-12-20] MEDS ORDERED: diphenhydrAMINE CAP 25 MG CAPSULE PO PRN (16:03)
[2020-12-20] MEDS ORDERED: ALUMINUM/MAGNES/SIMETH MAX STR 30 ML UDCUP PO PRN (16:03)
[2020-12-20] MEDS ORDERED: LACTULOSE 20 GM/30 ML UDCUP PO PRN (16:03)
[2020-12-20] MEDS ORDERED: MAGNESIUM HYDROXIDE SUSP 30 ML UDCUP PO PRN (16:03)
[2020-12-20] MEDS ORDERED: ONDANSETRON 4 MG/2 ML VIAL IV PRN (16:03)
[2020-12-20] MEDS ORDERED: TEMAZEPAM 7.5 MG CAPSULE PO PRN (16:03)
[2020-12-20] MEDS ORDERED: ACETAMINOPHEN 325 MG TABLET PO PRN (16:03)
[2020-12-20] MEDS ORDERED: guaiFENesin 200 MG/10 ML UDCUP PO PRN (16:03)
[2020-12-20] MEDS: PROMETHAZINE INJ 25 MG in SODIUM CHLORIDE 0.9% 50 ML IV PRN (17:37)
[2020-12-21] MEDS: PROMETHAZINE INJ 25 MG in SODIUM CHLORIDE 0.9% 50 ML IV PRN (01:59)
[2020-12-21] MEDS: MORPHINE 4 MG/1 ML VIAL IV PRN (02:00)
[2020-12-21] MEDS: DEXTROSE 5% NACL 0.45% 1,000 ML IV SCH ×2 (04:45→12:27)
[2020-12-21 06:57] LABS: Basophils % 0.2 % (0.0-0.8); Hematocrit 29.2 VOL% (35.7-47.0); Hemoglobin 8.8 GM/DL (12.0-16.0); Immature Granulocytes % 1.9 %; Lymphocytes # 2.3 10*3/uL (1.4-4.0); Lymphocytes % 22.1 % (21.3-54.2); Mean Corpuscular HGB Conc 30.1 GM/DL (32-36); Mean Corpuscular Volume 74.7 FL (87-102); Mean Platelet Volume 8.7 FL (9.6-12.0); Monocytes % 3.6 % (1.7-12.7); NRBC # 0.07 10*3/uL; Neutrophils % 72.2 % (38.7-73.9); Platelet Count 643 T/CUMM (130-400); Red Blood Count 3.91 MC/CUMM (3.8-5.5); Red Cell Distribution Width 25.2 % (9.3-17.3); White Blood Count 10.3 T/CUMM (4-12)
[2020-12-21 07:20] LABS: Calcium 8.3 MG/DL (8.5-10.1); Osmolality,Calculated 275.1 MOS/KG (273-304); Potassium 4.6 MMOL/L (3.5-5.1)
[2020-12-21 07:25] LABS: Hypochromasia 1+
[2020-12-21 07:26] LABS: Microcytosis 1+; Ovalocytes Slight; Platelet Estimate Increased; Polychromasia Slight; Target Cells Slight
[2020-12-21] MEDS: PANTOPRAZOLE 40 MG TABLET PO SCH (08:38)
[2020-12-21] MEDS: METOPROLOL SUCCINATE XL 25 MG TABLET PO SCH (08:38)
[2020-12-21] MEDS: SPIRONOLACTONE 25 MG TABLET PO SCH (08:38)
[2020-12-21] MEDS: allopurinoL 100 MG TABLET PO SCH (08:38)
[2020-12-21] MEDS ORDERED: predniSONE 20 MG TABLET PO SCH (09:00)
[2020-12-21 12:22] VITALS: BP 115/77
== END 2020-12-21 14:50 | disposition home or self-care (01) | DRG 820 ==
LOC: N.5E 10:21 → N.4E 12-20 12:42
PROVIDERS: ADMIT Family Medicine; ATTEND Family Medicine